=== PATIENT | female | born 1985 | race Caucasian/White ===

== ENCOUNTER 2021-11-22 22:24 | Emergency (ER) | payer OTHER ==
[2021-11-22 23:50] LABS: BASOPHIL 0.5 % (0-2); HGB 14.2 g/dl (12.5-16.0); LYMPHOCYTE 15.9 % (15-48); MCH 30.3 pg (25.0-31.0); MCHC 33.8 g/dL (32.0-36.0); MCV 89.7 fL (78.0-100.0); MONOCYTE 8.7 % (0-12); MPV 10.1 fL (6.0-9.5); NEUTROPHIL 73.5 % (41-80); NRBC 0; PLT 280 K/uL (150-400); RBC 4.68 M/uL (4.20-5.40); RDW 12.5 % (11.5-14.0); WBC 13.1 K/uL (4.0-10.5)
[2021-11-23 00:32] LABS: ALBUMIN 4.2 g/dL (3.4-5.0); BILIRUBIN - TOTAL 0.5 mg/dL (0.2-1.0); CREATININE 0.89 mg/dL (0.51-0.95); FT4 (FREE T4) 1.3 ng/dL (0.76-1.46); GLOBULIN (CALCULATION) 3.9 g/dL; MAGNESIUM 1.8 mg/dL (1.8-2.4); POTASSIUM 3.1 mmol/L (3.5-5.1); TOTAL PROTEIN 8.1 g/dL (6.4-8.2)
[2021-11-23 01:13] LABS: BILIRUBIN NEGATIVE (NEGATIVE); BLOOD TRACE-INTACT Ery/uL (NEGATIVE); CLARITY CLEAR (CLEAR); COLOR YELLOW (YELLOW); GLUCOSE (U) NORMAL (NORMAL); LEUKOCYTES NEGATIVE Leu/uL (NEGATIVE); NITRITE NEGATIVE (NEGATIVE); PROTEIN NEGATIVE (NEGATIVE); UROBILINOGEN 0.2 mg/dL (0.2-1.0)
[2021-11-23] MEDS ORDERED: NORCO 5-325 TA1 EACH PO (01:13)
[2021-11-23] MEDS ORDERED: VIBRAMYCIN100 MG PO (01:13)
[2021-11-23 01:20] LABS: BACTERIA 1+; URINARY WBC RARE
== END 2021-11-23 02:36 | disposition home or self-care (01) ==
LOC: FER 22:24
PROVIDERS: Internal Medicine
DX: R55 Syncope and collapse (principal); S02.2XXA Fracture of nasal bones, initial encounter for closed fracture; S01.21XA Laceration without foreign body of nose, initial encounter; S01.81XA Laceration without foreign body of other part of head, initial encounter; S10.91XA Abrasion of unspecified part of neck, initial encounter; E87.6 Hypokalemia; Z23 Encounter for immunization; Z88.1 Allergy status to other antibiotic agents
CPT/HCPCS: 12051; 36415; 70450; 70486; 72125; 80053; 81001; 83735; 84439; 84443; 84484; 85025; 90471; 90715; 93005; 99152; J2001; J2250